=== PATIENT | female | born 1965 | race Caucasian/White ===

== ENCOUNTER 2017-02-11 18:45 | Inpatient (IN) | payer BC ==
[2017-02-11 19:19] LABS: % IMMATURE GRANULYOCYTES 0.4 % (0.0-1.1); ABSOLUTE IMMATURE GRANULOCYTES 0.04 10^3/uL (0.00-0.10); ADD DIFF? NO; ADD MORPH? NO; ADD SCAN? NO; ATYPICAL LYMPHOCYTE FLAG 0 (0-99); FRAGMENT RBC FLAG 0 (0-99); HEMATOCRIT 44.8 % (38.0-47.0); HEMOGLOBIN 15.3 g/dL (12.6-16.3); LEFT SHIFT FLG 0 (0-99); LIPEMIA HEMOLYSIS FLAG 90 (0-99); MEAN CELL HEMOGLOBIN 29.7 pg (27.9-34.1); MEAN CELL HEMOGLOBIN CONCENTR. 34.2 g/dL (32.4-36.7); MEAN CELL VOLUME 86.8 fL (81.5-99.8); MEAN PLATELET VOLUME 9.7 fL (8.7-11.7); PLATELET CLUMPS FLAG 0 (0-99); PLATELET COUNT 300 10^3/uL (150-400); RED BLOOD CELL COUNT 5.16 10^6/uL (4.18-5.33)
[2017-02-11 19:32] LABS: ANION GAP 13 mEq/L (8-16); CALCIUM 9.9 mg/dL (8.5-10.4); CARBON DIOXIDE 22 mEq/l (22-31); CHLORIDE 106 mEq/L (97-110); CREATININE 0.5 mg/dL (0.6-1.0); ETHANOL SERUM < 10 mg/dL (0-10); GLOMERULAR FILTRATION RATE > 60; GLUCOSE 115 mg/dL (70-100); POTASSIUM 3.9 mEq/L (3.5-5.2); SALICYLATE < 1.0 mg/dL (2.0-20.0); SODIUM 141 mEq/L (134-144)
--- NOTE | 2017-02-11 21:45 | EDPHY ---
H & P Stated Complaint: Hallucinations, thinks she is "one with her father/." - Personal History LMP (Females 10-55): Unknown Current Tetanus Diphtheria and Acellular Pertussis (TDAP): Unsure - Medical/Surgical History Hx Asthma: No Hx Chronic Respiratory Disease: No Hx Diabetes: No Hx Cardiac Disease: No Hx Renal Disease: No Hx Cirrhosis: No Hx Alcoholism: No Hx HIV/AIDS: No Hx Splenectomy or Spleen Trauma: No Other PMH: med hx-none. surg-endometriosis,hyst,wisdom teeth - Social History Smoking Status: Unknown if ever smoked HPI/ROS: Chief complaint: Mental health hold History of present illness: This is a 51-year-old female brought to the emergency department by pre-hospital providers on a mental health hold for a psychiatric evaluation. Patient is felt to be gravely disabled. She has been stating she feels more than human, she states she feels super human. According to her there are spirits of other people living in her. On my evaluation she denies current illness or injury. She denies homicidal or suicidal ideation. She does state she uses alcohol and drugs. Review of systems: A 10 point review of systems is obtained and other than described above is negative (Ede Duque) - Physical Exam Exam: General Appearance: Alert, nontoxic. Eyes: Pupils equal and round no pallor or injection. ENT, Mouth: Mucous membranes moist. Respiratory: There are no retractions, lungs are clear to auscultation. Cardiovascular: Regular rate and rhythm. Gastrointestinal: Abdomen is soft and nontender, no masses, bowel sounds normal. Neurological: Alert. Strength and sensation intact and symmetrical. No meningismus. Ambulating around without difficulty. Skin: Warm and dry, no rashes. Musculoskeletal: Neck is supple nontender. Extremities are symmetrical, full range of motion. Psychiatric: Patient appears very manic. (Ede Duque) Constitutional: Initial Vital Signs Temperature (C) 36.0 C 02/11/17 18:45 Heart Rate 84 02/11/17 18:45 Respiratory Rate 14 02/11/17 18:45 Blood Pressure 134/76 H 02/11/17 18:45 O2 Sat (%) 98 02/11/17 18:45 O2 Delivery Mode Room Air Allergies/Adverse Reactions: No Known Allergies Allergy (Verified 11/14/15 13:08) Home Medications: Medication Instructions Recorded NK [No Known Home Meds] 11/14/15 Medical Decision Making ED Course/Re-evaluation: Patient seen under the supervision of my secondary supervising physician Dr. Antelmo Corona. Patient presents to the emergency department on a mental health hold concerned she is gravely disabled. On my evaluation she has no complaints. She is rambling. She appears acutely psychotic. She is medically evaluated and cleared for psychiatric evaluation. This is pending at time of dictation. Care of patient is turned over to my attending physician Dr. Ondina Ortega at end of shift. (Ede Duque) The patient was evaluated by the mental health worker. We plan to admit the patient to [address] [place] [address], Dr. Jack accepts the patient. (Ondina Ortega) Differential Diagnosis: Included but not limited to substance abuse, depression, bipolar schizophrenia ( Ede Duque) Care Turn Over: Signed out to Shannon at 2300; eval in progress. (Antelmo Corona) - Data Points Laboratory Results: Laboratory Results 02/11/17 18:54 02/11/17 18:54 02/11/17 02/11/17 02/11/17 20:21 18:54 18:54 WBC RBC Hgb Hct MCV MCH MCHC RDW Plt Count MPV Neut % (Auto) Lymph % (Auto) [place] % (Auto) Eos % (Auto) Baso % (Auto) Nucleat RBC Rel Count Absolute Neuts (auto) Absolute Lymphs (auto) Absolute Monos (auto) Absolute Eos (auto) Absolute Basos (auto) Absolute Nucleated RBC Immature Gran % Immature Gran # Sodium 141 mEq/L mEq/L (134-144) Potassium 3.9 mEq/L mEq/L (3.5-5.2) Chloride 106 mEq/L mEq/L (97-110) Carbon Dioxide 22 mEq/l mEq/l (22-31) Anion Gap 13 mEq/L mEq/L (8-16) BUN 9 mg/dL mg/dL (7-23) Creatinine 0.5 mg/dL L mg/dL (0.6-1.0) Estimated GFR > 60 Glucose 115 mg/dL H mg/dL (70-100) Calcium 9.9 mg/dL mg/dL (8.5-10.4) Beta HCG, Qual NEGATIVE Salicylates < 1.0 mg/dL L mg/dL (2.0-20.0) Urine Opiates Screen NEGATIVE (NEGATIVE) Acetaminophen < 10 mcg/mL L mcg/mL (10.0-30.0) Urine Barbiturates NEGATIVE (NEGATIVE) Ur Phencyclidine Scrn NEGATIVE (NEGATIVE) Ur Amphetamine Screen NEGATIVE (NEGATIVE) U Benzodiazepines Scrn NEGATIVE (NEGATIVE) Urine Cocaine Screen NEGATIVE (NEGATIVE) U Marijuana (THC) Screen NEGATIVE (NEGATIVE) Ethyl Alcohol < 10 mg/dL mg/dL (0-10) 02/11/17 18:54 WBC 9.33 10^3/uL 10^3/uL (3.80-9.50) RBC 5.16 10^6/uL 10^6/uL (4.18-5.33) Hgb 15.3 g/dL g/dL (12.6-16.3) Hct 44.8 % % (38.0-47.0) MCV 86.8 fL fL (81.5-99.8) MCH 29.7 pg pg (27.9-34.1) MCHC 34.2 g/dL g/dL (32.4-36.7) RDW 13.0 % % (11.5-15.2) Plt Count 300 10^3/uL 10^3/uL (150-400) MPV 9.7 fL fL (8.7-11.7) Neut % (Auto) 61.0 % % (39.3-74.2) Lymph % (Auto) 33.9 % % (15.0-45.0) [place] % (Auto) 4.2 % L % (4.5-13.0) Eos % (Auto) 0.2 % L % (0.6-7.6) Baso % (Auto) 0.3 % % (0.3-1.7) Nucleat RBC Rel Count 0.0 % % (0.0-0.2) Absolute Neuts (auto) 5.69 10^3/uL 10^3/uL (1.70-6.50) Absolute Lymphs (auto) 3.16 10^3/uL H 10^3/uL (1.00-3.00) Absolute Monos (auto) 0.39 10^3/uL 10^3/uL (0.30-0.80) Absolute Eos (auto) 0.02 10^3/uL L 10^3/uL (0.03-0.40) Absolute Basos (auto) 0.03 10^3/uL 10^3/uL (0.02-0.10) Absolute Nucleated RBC 0.00 10^3/uL 10^3/uL (0-0.01) Immature Gran % 0.4 % % (0.0-1.1) Immature Gran # 0.04 10^3/uL 10^3/uL (0.00-0.10) Sodium Potassium Chloride Carbon Dioxide Anion Gap BUN Creatinine Estimated GFR Glucose Calcium Beta HCG, Qual Salicylates Urine Opiates Screen Acetaminophen Urine Barbiturates Ur Phencyclidine Scrn Ur Amphetamine Screen U Benzodiazepines Scrn Urine Cocaine Screen U Marijuana (THC) Screen Ethyl Alcohol Departure - Departure Disposition: [facility] IP Clinical Impression: Acute psychosis Condition: Fair
[2017-02-12] MEDS ORDERED: MAG HYDROX/AL HYDROX/SIMETH 30 ML UDCUP PO PRN (02:30)
[2017-02-12] MEDS ORDERED: ACETAMINOPHEN 325 MG TAB PO PRN (02:30)
[2017-02-12] MEDS ORDERED: OLANZapine DISINTEGR 5 MG TAB PO PRN (02:30)
[2017-02-12] MEDS ORDERED: NICOTINE POLACRILEX 2 MG GUM B PRN (02:30)
[2017-02-12] MEDS ORDERED: LORazepam 0.5 MG TAB PO PRN (02:30)
[2017-02-12] MEDS ORDERED: MAGNESIUM HYDROXIDE 30 ML UDCUP PO PRN (02:30)
[2017-02-12] MEDS ORDERED: ZOLPIDEM TARTRATE 5 MG TAB PO PRN (14:05)
--- NOTE | 2017-02-12 14:24 | BCON ---
[f rep st] BEHAVIORAL HEALTH CONSULTATION INTERNAL MEDICINE CONSULTATION DATE OF CONSULTATION: 02/12/2017 REFERRING PHYSICIAN: Oma Jack MD REASON FOR CONSULT: Medical clearance for inpatient behavioral health stay. HISTORY OF PRESENT ILLNESS: The patient was admitted yesterday through the emergency department. She had been sent there by the walk-in clinic where she had presented manic with delusions. She was assessed by the mental health team and admitted for further psychiatric care. She currently is without any acute medical complaints. PAST MEDICAL HISTORY: She has a history of endometriosis. PAST SURGICAL HISTORY: She has had a hysterectomy and bilateral oophorectomy, and she has had her wisdom teeth extracted. MEDICATIONS: She was on no medications. ALLERGIES: There are no known drug allergies. SOCIAL HISTORY: She is and lives with her . She has no children. She has a history of substance abuse of alcohol and opiates but reportedly has been sober since 2014. FAMILY HISTORY: She was adopted. REVIEW OF SYSTEMS: She reports recent weight loss with a normal appetite. She thinks it is because she has been dancing more. She denies nausea, vomiting, constipation, diarrhea, or change in bowel habits. She denies dysuria or urinary frequency. She is not in any pain. She denies dyspnea or cough. She denies chest pain or palpitations. She denies feeling excessively hot or cold. She denies fevers or chills, and other than that, a 10-point review of systems is negative. PHYSICAL EXAM: VITAL SIGNS: Blood pressure is 129/87, heart rate is 71, respiratory rate is 16, oxygen saturation is 95% on room air, temperature is 36.6 degrees centigrade. Her weight is 81.6 kg for a body mass index of 32.9. GENERAL: This is an obese woman who appears her chronologic age, cooperative and in no acute distress. HEENT: Extraocular movements are intact. Pupils are equal, round, and reactive to light. Mucous membranes are moist. Dentition is in good condition. NECK: Supple with no thyromegaly. HEART: There is a regular rate and rhythm with no murmurs, rubs, or gallops. LUNGS: Clear to auscultation bilaterally. ABDOMEN: Soft, nontender, nondistended with normoactive bowel sounds. EXTREMITIES: There is no cyanosis, clubbing, or edema. Radial and dorsalis pedis pulses are 2+ bilaterally. NEUROLOGIC: She is alert and oriented to her general situation. Orientation to date, time and place were not checked. Cranial nerves 2-12 are grossly intact. There is no focal weakness. Sensation is intact to light touch. Deep tendon reflexes are 2+ bilaterally at the biceps, patellar, and Achilles tendons and gait is within normal limits. LABORATORY STUDIES: Drawn in the emergency department. A CBC was overall within normal limits. She had a minor elevation of absolute lymphocytes at 3.6 and a decrement of absolute eosinophils at 0.02 of no clinical significance. Serum chemistry revealed normal renal function and electrolytes. Her creatinine was low at 0.5. Her glucose was mildly elevated at 115 though this was likely not fasting. Beta hCG was negative for . Toxicology screen in the serum was negative for salicylates, acetaminophen or ethyl alcohol , and toxicology screen in the urine was negative for any substances of abuse. ASSESSMENT/RECOMMENDATIONS: 1. Mental health issues. Pending further evaluation per Psychiatry the mental health team. 2. Obesity. 3. Weight loss. Given her recent weight loss and her ha, I will check a TSH which I have added on to the sample that was drawn in the emergency department yesterday. I see no medical contraindications to Mrs. Austin continued stay in the inpatient behavioral health unit or to any psychiatric medications or procedures. Thank you very much for including me in the care of this patient and please do not hesitate to contact me or the hospitalist service should there be need for further medical evaluation. /[id number]/MODL MTDD
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
--- NOTE | 2017-02-14 11:15 | SOAPPROG ---
SOAP Progress Note Assessment/Plan: Assessment: Plan: 02/14/17 11:05 DAY UPDATE/EXAM: Nursing reports pt slept 8 hours and continue to reintegrate thought process- no residual psychosis observed by Nursing; pt c/w cares and is not on standing meds/ on direct exam is initially calm and conversant, no overt psychosis and mood relatively neutral, becomes more anxious as she discloses the recent sudden and unexpected of her twin brother in November 2016. 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 ASSESSMENT/PLAN: continues recompensating progress; discloses recent of brother as an additional stressor leading to breakdown/ no change in current meds and management plan; anticipate pt samuel ready for DC 02/16 or 02/17 with couples' meeting tomorrow Objective: Vital Signs Temp Pulse Resp BP Pulse Ox 36.3 C 80 16 118/68 94 02/14/17 05:36 02/14/17 05:36 02/14/17 05:36 02/14/17 05:36 02/14/17 05:36 ICD10 Worksheet Patient Problems: Problems Problem Status Onset Acute psychosis Acute
--- NOTE | 2017-02-15 13:03 | SOAPPROG ---
SOAP Progress Note Assessment/Plan: Assessment: Plan: 02/14/17 11:05 DAY UPDATE/EXAM: Nursing reports pt slept 8 hours and continue to reintegrate thought process- no residual psychosis observed by Nursing; pt c/w cares and is not on standing meds/ on direct exam is initially calm and conversant, no overt psychosis and mood relatively neutral, becomes more anxious as she discloses the recent sudden and unexpected of her twin brother in November 2016. 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 ASSESSMENT/PLAN: continues recompensating progress; discloses recent of brother as an additional stressor leading to breakdown/ no change in current meds and management plan; anticipate pt samuel ready for DC 02/16 or 02/17 with couples' meeting tomorrow 02/15/17 12:51 DAY UPDATE/EXAM: Nursing reports over last 24 cycle that pt continues to recompensate - more conversant and reflective, no overt psychosis, c/w cares, present in social milieu and attending selective groups/ on direct exam is calm , cooperative, conversant; discloses in more detail her addictive history which extends over 30 years and over last 15+ years involved daily abuse of prescribed stimulants and intermittent abuse of ETOH and prescribed opiates; she states she has been abstinet since November 2015, did use AA for time- limited period but has not been professionally treated for addictive disease and has no previous psychiatric rx; underscores she's never had psychotic sx before, agrees the unexpected of brother and increasing recall of extensive Ch trauma history overwhelmed her leading to this admission; is eager to pursue outpt dual services and re-activate AA participation; will comply with plan to use Seroquel as a prn med strategy post DC. ASSESSMENMT/PLAN: descriptively continues improving course; DC online tomorrow/ no change in meds or management plan; family meeting with tomorrow before pm DC Objective: Vital Signs Temp Pulse Resp BP Pulse Ox 36.7 C 73 15 119/77 94 02/15/17 06:00 02/15/17 06:00 02/15/17 06:00 02/15/17 06:00 02/15/17 06:00 ICD10 Worksheet Patient Problems: Problems Problem Status Onset Acute psychosis Acute
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
[2017-02-16] MEDS ORDERED: QUEtiapine FUMARATE 50 MG TAB PO PRN (06:31)
[2017-02-16 06:39] VITALS: BP 117/75; PULSE 78; RESP 16; TEMP 98.4; O2SAT 95
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
== END 2017-02-16 13:30 | disposition home or self-care (01) | DRG 885 ==
LOC: EDUNIT# → BBEH 02-12 04:00
PROVIDERS: ADMIT Psychiatry & Neurology Behavioral Neurology & Neuropsychiatry; ATTEND Psychiatry & Neurology Psychiatry
DX: F23 Brief psychotic disorder (principal); Z62.819 Personal history of unspecified abuse in childhood; F43.10 Post-traumatic stress disorder, unspecified; F39 Unspecified mood [affective] disorder; F98.8 Other specified behavioral and emotional disorders with onset usually occurring in childhood and adolescence; F11.21 Opioid dependence, in remission; F15.21 Other stimulant dependence, in remission; F10.21 Alcohol dependence, in remission; E66.9 Obesity, unspecified; Z68.32 Body mass index [BMI] 32.0-32.9, adult
CPT/HCPCS: 80305; G0480